=== PATIENT | male | born 1930 | race Caucasian/White ===

== ENCOUNTER 2018-01-13 11:53 | Emergency (ER) | payer MEDICARE, OTHER ==
[~2018-01-13] VITALS: Ht 152.4 cm; Wt 63.0 kg
[2018-01-13] MEDS ORDERED: MORPHINE SULFATE 2 MG/ML SYR IM STA (12:27)
[2018-01-13] MEDS ORDERED: KETOROLAC TROMETHAMINE 30 MG/ML VIAL IM PRN (12:30)
[2018-01-13] MEDS ORDERED: DEXAMETHASONE SOD PHOS INJ 4 MG/ML VIAL IM NR (13:00)
[2018-01-13 14:10] VITALS: BP 156/70
== END 2018-01-13 14:25 | disposition home or self-care (01) ==
LOC: EDBD 11:53 → ER 11:53
DX: M54.5 Low back pain (principal); S22.050A Wedge compression fracture of T5-T6 vertebra, initial encounter for closed fracture; S39.012A Strain of muscle, fascia and tendon of lower back, initial encounter; I10 Essential (primary) hypertension
CPT/HCPCS: 99282; J1100; J1885; J2270